=== PATIENT | male | born 2000 | race Two or more races ===

== ENCOUNTER 2024-08-02 12:57 | Emergency (ER) | payer MEDICAID, SELFPAY ==
[2024-08-02 13:23] VITALS: BP 151/95; PULSE 82; RESP 16; TEMP 37.1; O2SAT 97
--- NOTE | 2024-08-02 13:30 | EKG_ITS ---
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
--- NOTE | 2024-08-02 13:30 | XR_ITS ---
Examination: PA lateral chest 2 views Technique: Upright PA lateral chest 2 views Exam date and time: August 02, 2024 1401 hrs. Indications: Chest pain beginning 4 days ago. Findings: Normal heart size The lungs are clear. The osseous structures are intact Impression: No active disease
--- NOTE | 2024-08-02 13:31 | EDRME_ITS ---
Rapid Medical Screening Exam [facility] Arrival date/time: 08/02/24 12:57 23-year-old male presents emergency department complaining of chest pain, palpitations, and intermittent dizziness. Chief Complaint: Chest Pain Time Seen by Provider: 08/02/24 13:26 Vital signs: Vital Signs Temperature 98.8 F 08/02/24 13:23 Pulse Rate 82 08/02/24 13:23 Respiratory Rate 16 08/02/24 13:23 Blood Pressure 151/95 H 08/02/24 13:23 Pulse Oximetry (%) 97 08/02/24 13:23 Oxygen Delivery Method Room Air 08/02/24 13:23 Vital signs reviewed by provider: Yes
--- NOTE | 2024-08-02 13:31 | XR_ITS ---
Examination: CT brain head without contrast. 2-D sagittal coronal reconstructions Date and time of exam:August 02, 2024 1358 hrs. Indications: Dizziness headaches beginning 4 days ago CTDI: vol (mGy):52.3 DLP: (mGycm):1053 Technique: Multiple CT axial sections of the brain have been obtained, 5 mm slice thickness. Contrast has not been administered. 2-D sagittal, coronal reconstructions have been obtained Low dose protocols were performed. One or more of the following dose reduction techniques were used; automated exposure control, adjustment of the mA and/or KV according to patient size, use of iterative reconstruction technique. Findings: No significant ventricular enlargement. Intra-axial or extra-axial hemorrhage density is not seen. No mass effect or midline shift Basal cisterns are not remarkable. Fourth ventricle is midline. Cranial vault intact. Extensive sinusitis Impression: Negative for acute hemorrhage, mass effect or midline shift If symptoms persist, consider brain MRI follow-up
[2024-08-02 13:43] VITALS: BMI 26.9
[2024-08-02 14:05] LABS: Basophils # (Auto) 0.1 Thou/mm3 (0.0-0.2); Basophils % (Auto) 1 % (0-2.5); Eosinophils # (Auto) 0.3 Thou/mm3 (0.0-0.5); Eosinophils % (Auto) 4 % (0-10); Hematocrit 47.3 % (41.0-53.0); Hemoglobin 16.7 g/dL (13.5-16.0); Immature Granulocytes % (Auto) 0 % (0-0); Immature Granulocytes Auto 0.02 Thou/mm3 (0.00-0.00); Lymphocytes # (Auto) 3.2 Thou/mm3 (1.0-4.8); Lymphocytes % (Auto) 39 % (10-50); Mean Corpuscular HGB Conc 35.3 g/dl (31.0-37.0); Mean Corpuscular Volume 88 fL (80-100); Monocytes # (Auto) 0.4 Thou/mm3 (0.0-0.8); Monocytes % (Auto) 5 % (0-12); Neutrophils # (Auto) 4.3 Thou/mm3 (1.8-7.7); Neutrophils % (Auto) 52 % (37-80); Nucleated Red Blood Cell % 0 /100 WBC (0); Platelet Count 389 Thou/mm3 (140-440); RDW Standard Deviation 37.4 fL (35.1-43.9); Red Blood Count 5.39 Miln/mm3 (4.50-5.90); White Blood Count 8.3 Thou/mm3 (3.8-10.6)
[2024-08-02 14:21] LABS: Collection Type, Urine Clean Catch; Squamous Epithelial Cell,Urine 0 /hpf (0-5)
[2024-08-02 14:25] LABS: Partial Thromboplastin Time 28.2 Seconds (22.0-36.0); Prothrombin Time 11.4 Seconds (9.0-12.2)
[2024-08-02 14:29] LABS: B-Type Natriuretic Peptide < 20 pg/mL (0-100)
[2024-08-02 14:30] LABS: Bilirubin,Urine Negative (Negative); Blood,Urine Negative (Negative); Clarity,Urine Clear (Clear/Hazy); Color,Urine Yellow (Lt Yel-Yel); Glucose, Urine Negative (Negative); Ketones,Urine 2+ (Negative); Leukocyte Esterase,Urine Negative (Negative); Nitrite,Urine Negative (Negative); PH,Urine 6.5 (5.0-7.0); Protein,Urine Trace (Neg - Trace); RBC,Urine 8 /hpf (0-3); Specific Gravity,Urine 1.025 (1.001-1.035); Urobilinogen,Urine Negative mg/dL (0.0-1.0); WBC,Urine < 1 /hpf (0-5)
[2024-08-02 14:32] LABS: Alanine Aminotransferase 230 U/L (10-49); Albumin, Serum 5.5 gm/dL (3.5-5.0); Alkaline Phosphatase 93 U/L (46-116); Anion Gap 9 (7-16); Aspartate Amino Transferase 93 U/L (0-34); BUN/Creatinine Ratio 14 Ratio (12-20); Bilirubin,Total 0.7 mg/dL (0.3-1.2); Blood Urea Nitrogen 10 mg/dL (9-23); Calcium 10.3 mg/dL (8.3-10.6); Calcium (Corrected) 10.3 mg/dL (8.5-10.1); Carbon Dioxide 24.5 mMol/L (20.0-31.0); Chloride 101 mMol/L (98-107); Creatinine (Component) 0.7 mg/dL (0.6-1.3); Globulin 2.8 gm/dL (2.3-3.5); Glucose 153 mg/dL (74-106); LDH (Lactate Dehydrogenase) 195 U/L (120-246); Magnesium 1.9 mg/dL (1.6-2.6); Osmolality,Calculated 270 (275-295); Potassium 3.8 mMol/L (3.4-5.1); Sodium 134 mMol/L (136-145); Total Protein 8.3 gm/dL (5.7-8.2); Troponin I < 0.002 ng/mL (0.0-0.045); eGFR > 60 See Note
[2024-08-02 14:44] LABS: Amphetamine/Methamp Scrn,U Negative (Negative); Barbiturate Screen,Urine Negative (Negative); Benzodiazepines Screen,Urine Negative (Negative); Benzoylecgonine Screen, Ur Negative (Negative); Fentanyl Screen,Urine Negative (Negative); Opiate Screen,Urine Negative (Negative); THC Screen,Urine Negative (Negative)
--- NOTE | 2024-08-02 15:50 | PD.EDCHEST ---
ED Chest Pain RME/HPI General Chief Complaint: Chest Pain Stated Complaint: CHEST PAIN X 4 DAYS Time Seen by Provider: 08/02/24 13:26 Arrival date/time: 08/02/24 12:57 RME / HPI RME / HPI narrative: 23-year-old male patient with no significant medical history, came in for evaluation regarding substernal chest pain. Onset of symptoms for the last 4 days as substernal chest pain, described as burning-like sensation, associated with palpitation, and dizziness. Denies any headache denies any cough denies any other complaints no medications taken prior to arrival. Related Data Previous Rx's ?Medication ?Instructions ?Recorded pantoprazole 40 mg tablet,delayed 40 mg PO QDAY #20 tabs 08/02/24 release (Protonix) Allergies Allergy/AdvReac Type Severity Reaction Status Date / Time No Known Allergies Allergy Verified 08/02/24 12:58 Review of Systems Review of Systems Narrative Review of Systems: Review of system reviewed and within normal limits except mentioned in HPI ED Exam Narrative Physical exam: VITAL SIGNS: Reviewed. GENERAL APPEARANCE: Alert and interactive, follows commands, no acute distress, HEAD AND FACE: Non-traumatic. ENT: PERRL, pink conjunctivitis, eyelid no trauma, Mucous membrane moist. NECK: Supple, nontender, no nuchal rigidity. CHEST: No tenderness, no crepitus, no paradoxical movement, no retractions. LUNGS: Clear, well ventilated, symmetric, no rales, no wheezing, no ronchi, no stridor, good breath sounds bilaterally. HEART: Regular rate, regular rhythm, no murmur, no gallops. ABDOMEN: Soft, positive bowel sounds, nondistended, no guarding, nontender, no rebound, no masses, RECTAL: Deferred. GENITAL: Deferred. NEUROLOGICAL: Gross motor function intact sensory function intact, Appropriate for age. MUSCULOSKELETAL: low back nontender, full range of motion. EXTREMITIES: Nontender, full range of motion. SKIN: Color pink, dry, no rash, no lacerations, no abrasions, no contusions. LYMPHATICS: Deferred. Course Quality Measures none Orders Category Date Time Status EKG (ED ONLY) *Do not use* NOW Care 08/02/24 13:[address] head/brain wo con Stat Exams 08/02/24 13:31 Completed EKG (ED Only) Stat Exams 08/02/24 13:30 Draft XR chest 2V Stat Exams 08/02/24 13:30 Taken B-Type Natriuretic Peptide Stat Lab 08/02/24 13:47 Completed CBC Stat Lab 08/02/24 13:47 Completed Comprehensive Metabolic Panel Stat Lab 08/02/24 13:47 Completed Drug Screen,Urine Stat Lab 08/02/24 14:16 Completed LDH (Lactate Dehydrogenase) Stat Lab 08/02/24 13:47 Completed Magnesium Stat Lab 08/02/24 13:47 Completed Partial Thromboplastin Time Stat Lab 08/02/24 13:47 Completed Prothrombin Time with INR Stat Lab 08/02/24 13:47 Completed Troponin I Stat Lab 08/02/24 13:47 Completed Urinalysis Stat Lab 08/02/24 14:16 Completed Vital Signs Vital signs: Vital Signs Temperature 98.8 F 08/02/24 13:23 Pulse Rate 82 08/02/24 13:23 Respiratory Rate 16 08/02/24 13:23 Blood Pressure 151/95 H 08/02/24 13:23 Pulse Oximetry (%) 97 08/02/24 13:23 Oxygen Delivery Method Room Air 08/02/24 13:23 Chest Pain MDM Narrative MDM Narrative:: 23-year-old male patient with no significant medical history, came in for evaluation regarding substernal chest pain. Onset of symptoms for the last 4 days as substernal chest pain, described as burning-like sensation, associated with palpitation, and dizziness. Denies any headache denies any cough denies any other complaints no medications taken prior to arrival. Patient's cardiac workup all came back normal. CT scan of the head also came back unremarkable. The rest of the labs unremarkable. Patient is probably having GERD causing chest pain. Patient will be sent home on Protonix. Patient data External records reviewed:: None Clinical information provided by:: none Social determinants that could affect healthcare access:: none Patient has the following chronic illnesses:: None How is presenting disease/condition affected by chronic disease/condition?: no chronic disease Evaluation data The following diagnostics were reviewed and interpreted by me:: lab results, radiology exam(s) and EKG tracing(s) Lab and/or radiology exams considered but not ordered:: None Interpretation Summary: CT scan of the head came back unremarkable. I personally reviewed and interpreted the x-ray of this patient. There is no acute abnormalities found, no infiltrates no pneumothorax no hemothorax normal chest x-ray. Review of other structures was without significant abnormal findings also. I additionally reviewed the radiologist report and agree with the interpretation. EKG showed as interpreted by me as normal sinus rhythm, ventricular rate of 91 bpm, no ST segment elevation or depression noted. Laboratory workup all came back unremarkable. Troponin is normal. Medications / Prescriptions Medications or Prescriptions considered but not ordered:: None Medication administrations:: None Consultations Consultation(s) initiated? (list below): No Diagnosis Chest Pain Differential Diagnosis: pneumothorax, chest pain and other (GERD causing chest pain) Most likely diagnosis given after review of the tests above:: GERD causing chest pain Admission Indicated Admission indicated?: not indicated Explain why admission is indicated or not indicated:: Stable Admission Request Was there a request for admission?: No Disposition Plan Disposition Plan: Discharge Discharge Attestation Discharge Attestation: The patient and all family members were given an opportunity to ask questions and understood the discharge instructions. Discharge instructions specifically effects, indications for sooner follow up or return to the emergency department, and the expected course of current diagnosis. Patient condition: Stable Discharge Plan Plan Patient Disposition: HOME (Self Care) Disposition Comment: Stable Prescriptions/Referrals Prescriptions/Med Rec: New pantoprazole [Protonix] 40 mg tablet,delayed release (DR/EC) 40 mg PO QDAY Qty: 20 0RF Referrals: No Primary/Family,Physician [Primary Care Provider] - In 1 week Problem List Clinical Impression: Chest pain due to GERD Patient/Caregiver Discharge Instructions Education Materials: ED GERD (Adult) Additional Instructions: Thank you for the opportunity for serving you today. You are stable for discharged . You are advised to: Follow-up with your PCP in 1 to 2 days Return to ED for worsening of symptoms Increase oral fluids Take medication as prescribed Print Language: Angolan Stand Alone Forms: Gilda Award Info., Patient Portal Info Letter JACOBO/KANA Supervising Physician JACOBO/KANA Supervising Physician: MD Jigar
--- NOTE | 2024-08-02 16:02 | PC.NURSE ---
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
== END 2024-08-02 16:10 | disposition home or self-care (01) ==
PROVIDERS: Emergency Provider Emergency Medicine
DX: K21.9 Gastro-esophageal reflux disease without esophagitis (principal)
CPT/HCPCS: 36415; 70450; 71046; 80053; 80307; 81001; 83615; 83735; 83880; 84484; 85025; 85610; 85730; 93005; 99284